=== PATIENT | female | born 1990 | race Caucasian/White ===

== ENCOUNTER 2024-01-11 17:37 | Emergency (ER) | payer BC ==
[~2024-01-11] VITALS: Ht 170.2 cm; Wt 84.1 kg
[2024-01-11] MEDS ORDERED: PERCOCET 325 MG1 TA2 PO (18:06)
[2024-01-11] MEDS ORDERED: OMEPRAZOLE40 MG PO (18:07)
[2024-01-11] MEDS ORDERED: NS 1,000 ML IV SCH (18:30)
[2024-01-11] MEDS ORDERED: Ondansetron 4 MG/2 ML VIAL IV ONE (18:30)
[2024-01-11] MEDS ORDERED: Ketorolac 30 MG/ML VIAL IV ONE (18:30)
[2024-01-11 19:05] LABS: BASO # 0.03 K/mm3 (0.02-0.10); EOS # 0.12 K/mm3 (0.04-0.40); EOS % 0.9 % (1.0-5.0); HEMATOCRIT 43.8 % (37.0-47.0); HEMOGLOBIN 14.4 g/dL (12.5-16.0); LYMPH# 3.05 K/mm3 (1.50-4.00); MEAN CELL VOLUME 90 fl (78-100); MEAN CORPUSCULAR HEMOGLOBIN 30 pg (27-31); MEAN CORPUSCULAR HGB CONC 33 g/dL (33-37); MEAN PLATELET VOLUME 10.6 fl (7.4-10.4); MONO # 0.95 K/mm3 (0.20-0.80); NEU # 9.22 K/mm3 (1.40-6.50); PLATELET COUNT 335 K/mm3 (130-400); RED BLOOD COUNT 4.86 M/mm3 (4.10-5.30); WHITE BLOOD COUNT 13.4 K/mm3 (4.8-10.8)
[2024-01-11 19:09] LABS: ALBUMIN 4.5 g/dL (3.5-5.0)
[2024-01-11 19:10] LABS: CALCIUM 9.7 mg/dL (8.3-10.5)
[2024-01-11 19:11] LABS: TOTAL PROTEIN 7.5 g/dL (6.4-8.3)
[2024-01-11 19:13] LABS: TOTAL BILIRUBIN 0.4 mg/dL (0.2-1.2)
[2024-01-11 19:16] LABS: URINE APPEARANCE CLEAR (CLEAR); URINE BILIRUBIN NEGATIVE (NEGATIVE); URINE BLOOD NEGATIVE (NEGATIVE); URINE COLOR YELLOW (YELLOW); URINE GLUCOSE NEGATIVE (NEGATIVE); URINE KETONE TRACE (NEGATIVE); URINE LEUKOCYTE ESTERASE TRACE (NEGATIVE); URINE NITRATE NEGATIVE (NEGATIVE); URINE PROTEIN(semi-quant) NEGATIVE (NEGATIVE)
[2024-01-11 20:00] VITALS: BP 129/74
== END 2024-01-11 20:00 | disposition home or self-care (01) ==
LOC: ED 17:37
PROVIDERS: Physician Assistant
DX: B34.9 Viral infection, unspecified (principal); R53.1 Weakness; R53.83 Other fatigue; Z91.040 Latex allergy status
CPT/HCPCS: J1885; J2405; J7030

== ENCOUNTER → 2024-03-31 | Outpatient (CLI) | payer BC ==
[~2024-03-31] MED LIST: OMEPRAZOLE40 MG PO; PERCOCET 325 MG1 TA2 PO
== END ==
LOC: RAD 14:07
DX: M47.816 Spondylosis without myelopathy or radiculopathy, lumbar region (principal); M51.27 Other intervertebral disc displacement, lumbosacral region